=== PATIENT | female | born 1985 | race Caucasian/White ===

== ENCOUNTER 2017-02-11 23:54 | Inpatient (IN) | payer OTHER ==
[~2017-02-11] VITALS: Ht 177.8 cm; Wt 90.7 kg
[~2017-02-11 23:54] MED LIST: Docusate Sodium PO; Lanolin TP
[2017-02-12] MEDS ORDERED: PNV1TABL81 PO (00:47)
[2017-02-12] MEDS ORDERED: fentaNYL-PF 50 mCg/mL 2 mL Inj IVPUSH PRN (01:35)
[2017-02-12] MEDS ORDERED: Carboprost 250 mCg/mL Inj IM PRN ×2 (01:35→06:50)
[2017-02-12] MEDS ORDERED: Oxytocin 30 Units/500 mL LR 30 UNITS in IV Premix 1 EACH IV PRN ×2 (01:35→06:50)
[2017-02-12] MEDS ORDERED: Oxytocin 10 Unit/mL Inj IM PRN ×2 (01:35→06:50)
[2017-02-12] MEDS ORDERED: Penicillin G K Inj 5,000,000 UNITS in Dextrose 5% Minibag Plus 100 ML IV ONE (01:35)
[2017-02-12] MEDS ORDERED: Hemorrhage Kit, Post Partum XX ONE ×2 (01:35→06:50)
[2017-02-12] MEDS ORDERED: Methylergonovine 0.2 mg/mL Inj IM PRN ×2 (01:35→06:50)
[2017-02-12] MEDS ORDERED: Ondansetron 2 mg/mL 2 mL Inj IVPUSH PRN (01:35)
[2017-02-12] MEDS ORDERED: Lactated Ringer's 1,000 ML IV PRN (01:35)
[2017-02-12] MEDS ORDERED: Sodium Chloride LOK Flush 10 mL Syringe IVFLUSH PRN (01:35)
[2017-02-12 01:46] LABS: Mean Corpuscular Hemoglobin 30.3 pg (27.0-35.0); Mean Corpuscular Volume 89.2 fL (81-100)
[2017-02-12] MEDS ORDERED: Oxytocin 30 Units/500 mL LR Premix IV SCH (02:35)
[2017-02-12] MEDS ORDERED: Lactated Ringer's 500 ML IV ONE (02:43)
[2017-02-12] MEDS: Lactated Ringer's 1,000 ML IV SCH ×6 (02:43→22:49)
[2017-02-12] MEDS ORDERED: Atropine 1 mg/10 mL (Code) Syringe IVPUSH PRN (02:45)
[2017-02-12] MEDS ORDERED: fentaNYL 2 mCg/mL-Bupiv 0.125% 100 ML EPIDURAL SCH (02:45)
[2017-02-12] MEDS ORDERED: EPHEDrine Sulfate 50 mg/mL Inj IVPUSH PRN (02:45)
--- NOTE | 2017-02-12 02:47 | PCM.HPANE ---
Patient Data Date of Service: Feb 12, 2017 Surgeon Admitting Provider:Martin Muniz MD Attending Provider:Martin Muniz MD Primary Care Physician:Magali Daniel MD Other Provider: Reason for Visit Term Labor Check TERM LABOR CHECK Ht/WT & BMI Body Mass Index Allergies Coded Allergies: No Known Allergies (Unverified , 11/05/14) Diabetes History Hx Diabetes?: No MRSA MRSA: No Medications Hypertension Medication: No Active Scripts [Lanolin] (Lansinoh Ointment)14 APPLIC/7 GM OINT No Conflict Check1 Applic TP PRN PRN apply to nipples #60 TUBE Ref 3 Prov:Magali Daniel MD 11/07/14 [Docusate Sodium] (Colace)100 MG CAPSULE No Conflict [id number] Mg PO DAILY PRN CONSTIPATION #100 CAPSULE Ref 0 Prov:Magali Daniel MD 11/07/14 Reported Medications Pnv No.122/Iron/Folic Acid ( Multi Tablet)27 Mg Iron-800 Mcg Tablet1 Each PO DAILY 02/12/17 History History of ENT Problems?: No Hx of Heart Problems?: No Hx of Respiratory Problem?: No Hx Neurologic Problems?: No Hx of GI Problems?: No Hx of Problems?: No HX of Peritoneal Dialysis: No Female Hx: Positive for:: Currently Smoking Status: Never Smoker Stop/Mat Treated for Sleep Apnea?: No Do You Have a CPAP Machine?: No S-Snoring: Do You Snore Loudly: No T-Tired: feel tired, fatigued: No O-Obsered: Observed not breath: No P-Blood Pressure: treated: No B- Body Mass Index > 35 kg/m2: No A- Age over 50: No N- Neck Large Circumference: No G- Gender Male: No Risk Assessment Category Category 1A: Patient has history of documented sleep apnea, and HAS NOT received any narcotic, sedative or anesthesia administration during this stay. Category 1B: Patient has history of documented sleep apnea, and HAS received any narcotic , sedative or anesthesia administration during this stay Category 2: Patient has SUSPECTED Obstructive Sleep Apnea, and HAS received any narcotic , sedative or anesthesia administration during this stay. Category 3: Patient has SUSPECTED Obstructive Sleep Apnea and HAS NOT received narcotic, sedative or anesthesia administration during this stay. Category 4: Outpatient in Procedural Areas with known sleep apnea or who screen positive for High Risk via the STOP/BANG questionnaire. Exam Exam General Appearance: Oriented X3 HEENT/AIRWAY: MP 2 Lungs: Clear to Auscultation Heart: Exam Unremarkable Meds/Labs/Diagnostics Labs Test 02/12/17 01:35 White Blood Count 16.1th/mm3 (3.8-10.1) Red Blood Count 4.45mil/mm3 (3.90-5.20) Hemoglobin 13.5g/dL (12.0-15.6) Hematocrit 39.7% (35.0-46.0) Mean Corpuscular Volume 89.2fL (81-100) Mean Corpuscular Hemoglobin 30.3pg (27.0-35.0) Mean Corpuscular Hemoglobin Concent 34.0% (32.0-37.0) Red Cell Distribution Width 13.7% (12.3-15.4) Platelet Count 188bil/L (150-400) Plan Impression Patient chart reviewed, patient interviewed and anesthestic plan with risks, benefits, and alternatives discussed, and informed consent obtained. ASA Physical Status: ASA1 Normal Healthy Anesthetic Plan: Epidural Bene/Risks/Altern/Consents: Yes HP Complete Prior to Induction: Yes Cuco Fontanez MD Feb 12, 2017 02:47
[2017-02-12] MEDS ORDERED: Penicillin G K Inj 3,000,000 UNITS in IV Premix 1 EACH IV SCH (05:30)
[2017-02-12] MEDS ORDERED: HYDROcodone-APAP 5-325 mg Tablet PO PRN (06:50)
[2017-02-12] MEDS ORDERED: LANOlin HPA 7 Gm Ointment TOPICAL PRN (06:50)
[2017-02-12] MEDS ORDERED: Witch Hazel-Glycerin Pads TOPICAL PRN (06:50)
[2017-02-12] MEDS ORDERED: Benzocaine (Dermoplast) 20% 60 Gm Spray TOPICAL PRN (06:50)
--- NOTE | 2017-02-12 06:58 | PCM.OBVAG ---
Vaginal Delivery Date of Service Feb 12, 2017 Pre Operative Diagnosis Pre Operative Diagnosis Term gestation, labor Post Operative Diagnosis Post Operative Diagnosis Term gestation, delivered Procedure Procedure: Spontaneous vaginal delivery Obstetical Procedure: Normal Spontaneous Vaginal Delivery Track Man/Dovetailer Provider and Dovetailer: Martin Muniz MD Indication for Procedure Induction: Active labor, SROM (light meconium), Progressed normally through labor Findings Obstetrical Findings: [place] (Male), Cord (3 Vessel), Presentation (Vertex), 1 minute (8), 5 minutes (9), Placenta (Intact/Normal), Perineal Laceration (intact) Analgesia/Medications Obstetrical Anesthesia: Epidural Procedure Details Procedure Details Patient presented at 40 3/7 weeks EGA with SROM of light meconium-stained fluid , at 2300, at home. Contractions were increasing in intensity and frequency. She progressed well through labor. There were intermittent variable decelerations and a prolonged deceleration, proximal to delivery, that resolved with repositioning. She pushed without difficulty, delivering a vigorous infant. PCN was given for GBS prophylaxis. She received this 4 hours prior to delivery. Blood Loss & Administration Estimated Blood Loss: 200 Post Procedure Plan Post Procedure Plan Routine care. Post delivery Condition: Mom stable, Baby stable to nursery Martin Muniz MD Feb 12, 2017 06:58
[2017-02-13] MEDS: Lactated Ringer's 1,000 ML IV SCH (02:43)
--- NOTE | 2017-02-13 07:54 | PCM.DC.OB ---
Obstetrical Discharge Summary Date of Service Feb 13, 2017 Date of hospital admission Feb 12, 2017 at 00:18 Date of Discharge: Feb 13, 2017 Providers Admitting Physician: Martin Muniz MD Primary Care Physician: Magali Downs MD Attending Physician: Martin Muniz MD Problems: (1) normal course Status: Acute ICD Code: Z39.2 (2) Spontaneous vaginal delivery Status: Resolved ICD Code: O80 Invasive procedures Epidural anethesia Hospital Course: Minimal pain, up to walk and void. No perineal pain. Lochia lightening. Feeling generally well. ([Docusate Sodium]) 100 MG CAPSULE 100 MG PO DAILY PRN PRN CONSTIPATION Prescribed by: MAGALI DOWNS MD ([Lanolin]) 14 APPLIC/7 GM OINT 1 APPLIC TP PRN PRN PRN apply to nipples Prescribed by: MAGALI DOWNS MD Pnv No.122/Iron/Folic Acid ( Multi Tablet) 27 Mg Iron-800 Mcg Tablet 1 EACH PO DAILY (Reported) Last Taken: Unknown Dose on 02/11/17 2200 Discharge Medications: Use home supply of Ibuprofen and Lanolin cream PRN. Disposition Discharge to boarder status Discharge Diet: No restrictions Discharge Activity-General: Pelvic Rest for 6 weeks, Try not to overdue, Be up and about, Balance rest and activity, Activity as energy allows Time spent 15 minutes Magali Downs MD Feb 13, 2017 07:54
--- NOTE | 2017-02-13 07:56 | PCM.DIOB ---
Obstetrical Disch Instruction Dates of Hospitalization Date of Hospital Admission Feb 12, 2017 at 00:18 Providers Admitting Physician: Martin Muniz MD Primary Care Physician: Magali Daniel MD Attending Physician: Martin Muniz MD Discharge Diagnosis Problems: (1) normal course Status: Acute ICD Code: Z39.2 (2) Spontaneous vaginal delivery Status: Resolved ICD Code: O80 Diet Discharge Diet: No restrictions Activity Discharge Activity-General: No restrictions, Pelvic Rest for 6 weeks, Try not to overdue, Be up and about, Balance rest and activity, Activity as energy allows Dressing and Incisional Care Hygiene: May shower, NO bathtub, hot tub or whirlpool, Perineal care Follow Up Plan Follow Up Plan Follow up for appointment in 8 weeks. Follow-up Provider (F9): Magali Daniel MD Call your provider for: Fever or Chills, Shortness of breath, Heavy vaginal bleeding, Excessive constipation, Vaginal discomfort, Red painful breasts Magali aDniel MD Feb 13, 2017 07:56
[2017-02-13 07:59] LABS: Mean Corpuscular Hemoglobin 29.7 pg (27.0-35.0); Mean Corpuscular Volume 91.3 fL (81-100)
[2017-02-13 10:34] VITALS: BP 112/56; PULSE 71; RESP 16
== END 2017-02-13 11:00 | disposition home or self-care (01) | DRG 775 ==
LOC: FBCO 23:54 → FBC 02-12 00:18
PROVIDERS: ADMIT Family Medicine; ATTEND Family Medicine
PROC: 10E0XZZ Delivery of Products of Conception, External Approach (ICD-10-PCS; principal; 2017-02-12)
DX: O76 Abnormality in fetal heart rate and rhythm complicating labor and delivery (principal); O77.0 Labor and delivery complicated by meconium in amniotic fluid; O99.824 Streptococcus B carrier state complicating childbirth; Z3A.40 40 weeks gestation of pregnancy; Z37.0 Single live birth